=== PATIENT | female | born 1990 | race Two or more races ===

== ENCOUNTER 2018-03-18 16:01 | Emergency (ER) | payer MEDICAID, MEDICARE ==
[~2018-03-18] VITALS: Ht 157.5 cm; Wt 47.6 kg
[~2018-03-18 16:01] MED LIST: CLON1TAB72 PO; GABA800T87 PO; ZONI100C43 OR
[2018-03-18 17:06] LABS: Basophils # (auto) 0.1 uL; Basophils % (auto) 0.8 % (0.0-2.0); Eosinophils # (auto) 0.5 uL; Eosinophils % (auto) 5.9 % (0.0-7.0); Hemoglobin 14.2 g/dL (12.2-16.2); Lymphocytes # (auto) 2.5 uL; Lymphocytes % (auto) 29.1 % (10.0-50.0); Mean Corpuscular Hemoglobin 31.1 pg (28.0-32.0); Mean Corpuscular Hgb Conc. 33.9 g/dL (32.0-36.0); Mean Corpuscular Volume 91.7 fL (80.0-100.0); Monocytes # (auto) 0.4 uL; Monocytes % (auto) 4.8 % (0.0-12.0); Neutrophils # (auto) 5.2 uL; Neutrophils % (auto) 59.4 % (37.0-80.0); Nucleated Red Blood Cells % 0.1 %; Platelet Count (auto) 193 10^3/uL (140-450); Red Blood Cells 4.58 10^6/uL (4.0-5.20); Red Cell Distribution Width 13.8 % (11.8-14.3); White Blood Cell 8.7 10^3/uL (4.4-10.8)
[2018-03-18 17:20] LABS: Albumin 3.7 g/dL (3.4-5.0); Calcium 8.5 mg/dL (8.5-10.1); Potassium 3.4 mmol/L (3.5-5.1)
[2018-03-18 17:23] LABS: BUN/Creatinine Ratio 13.7; Bilirubin, Total 0.2 mg/dL (0.2-1.0); Total Protein 7.2 g/dL (6.4-8.2)
[2018-03-18] MEDS ORDERED: clonazePAM 0.5 MG TAB PO ONE (18:45)
[2018-03-18 19:34] VITALS: BP 131/96
== END 2018-03-18 20:33 | disposition home or self-care (01) ==
LOC: EDBD 16:01 → ER 16:04
DX: G40.89 Other seizures (principal); Q90.9 Down syndrome, unspecified; G80.9 Cerebral palsy, unspecified; Z91.14 Patient's other noncompliance with medication regimen
CPT/HCPCS: 36415; 80053; 85025

== ENCOUNTER 2018-03-19 08:02 | Emergency (ER) | payer MEDICAID, MEDICARE ==
[~2018-03-19] VITALS: Ht 154.9 cm; Wt 54.4 kg
[2018-03-19] MEDS ORDERED: LORazepam 2MG/ML-1ML VIAL ONE (08:13)
[2018-03-19] MEDS ORDERED: SODIUM CHLORIDE 0.9% 1,000 ML IV ONE (08:19)
[2018-03-19] MEDS ORDERED: SODIUM CHLORIDE 0.9% 500 ML IVB ONE (08:19)
[2018-03-19] MEDS ORDERED: LORazepam 2MG/ML-1ML VIAL IV ONE ×2 (08:30)
[2018-03-19] MEDS ORDERED: LEVETIRACETAM INJ 1,000 MG in D5W 5% 100 ML IV ONE (08:30)
[2018-03-19 09:12] LABS: Basophils # (auto) 0 uL; Basophils % (auto) 0.5 % (0.0-2.0); Eosinophils # (auto) 0.5 uL; Eosinophils % (auto) 5.2 % (0.0-7.0); Hematocrit 43.7 % (36.0-46.0); Lymphocytes # (auto) 2.6 uL; Lymphocytes % (auto) 25.6 % (10.0-50.0); Mean Corpuscular Hemoglobin 31.2 pg (28.0-32.0); Mean Corpuscular Hgb Conc. 34.3 g/dL (32.0-36.0); Mean Corpuscular Volume 90.8 fL (80.0-100.0); Monocytes # (auto) 0.5 uL; Monocytes % (auto) 4.8 % (0.0-12.0); Neutrophils # (auto) 6.4 uL; Neutrophils % (auto) 63.9 % (37.0-80.0); Nucleated Red Blood Cells % 0.1 %; Platelet Count (auto) 168 10^3/uL (140-450); Red Blood Cells 4.81 10^6/uL (4.0-5.20); Red Cell Distribution Width 13.7 % (11.8-14.3); White Blood Cell 10.1 10^3/uL (4.4-10.8)
[2018-03-19 09:20] LABS: Albumin 3.7 g/dL (3.4-5.0); Potassium 3.5 mmol/L (3.5-5.1)
[2018-03-19 09:23] LABS: BUN/Creatinine Ratio 9.2; Bilirubin, Total 0.3 mg/dL (0.2-1.0); Total Protein 7.3 g/dL (6.4-8.2)
[2018-03-19 12:40] LABS: Urine Amorphous Crystal FEW /hpf (None Seen); Urine Bacteria FEW /hpf (None Seen); Urine Blood Negative /uL (Negative); Urine Mucus FEW (None Seen); Urine Specific Gravity 1.007 (1.001-1.035); Urine WBC 1 /hpf (0 - 5)
[2018-03-19 12:45] LABS: Alcohol, Urine < 3.0 mg/dL (0-5); Amphetamine Screen, Urine NEGATIVE (NEGATIVE); Benzodiazephine Screen, Urine POSITIVE (NEGATIVE); Cannabinoid Screen, Urine NEGATIVE (NEGATIVE); Cocaine Screen, Urine NEGATIVE (NEGATIVE); Opiate Scree,Urine NEGATIVE (NEGATIVE); Phencyclidine Screen, Urine NEGATIVE (NEGATIVE)
[2018-03-19 12:52] LABS: Barbiturate Scree,Urine NEGATIVE (NEGATIVE)
[2018-03-19 13:37] VITALS: BP 102/57
== END 2018-03-19 13:52 | disposition home or self-care (01) ==
LOC: EDBD 08:02 → ER 08:02
DX: G40.909 Epilepsy, unspecified, not intractable, without status epilepticus (principal); Q90.9 Down syndrome, unspecified
CPT/HCPCS: 36415; 51702; 70450; 71045; 80053; 80307; 81001; 81025; 83735; 84443; 84702; 85025; 93005; 94761; 96365; 96366; 96375; 99284; J1953; J2060; J7030; J7060

== ENCOUNTER 2018-03-19 20:06 | Emergency (ER) | payer MEDICARE, MEDICAID ==
[~2018-03-19] VITALS: Ht 152.4 cm; Wt 59.0 kg
[2018-03-19 20:17] VITALS: BP 100/71
== END 2018-03-19 21:08 | disposition left against medical advice (07) ==
LOC: EDBD 20:06 → ER 20:12
DX: R25.1 Tremor, unspecified (principal); Z76.0 Encounter for issue of repeat prescription; Z53.21 Procedure and treatment not carried out due to patient leaving prior to being seen by health care provider

== ENCOUNTER 2018-04-28 08:03 | Emergency (ER) | payer MEDICARE, MEDICAID ==
[~2018-04-28] VITALS: Ht 142.2 cm; Wt 54.4 kg
[2018-04-28 11:04] LABS: Basophils # (auto) 0.1 uL; Basophils % (auto) 0.7 % (0.0-2.0); Eosinophils # (auto) 0.4 uL; Eosinophils % (auto) 4.1 % (0.0-7.0); Hematocrit 43.5 % (36.0-46.0); Hemoglobin 14.7 g/dL (12.2-16.2); Lymphocytes # (auto) 1.9 uL; Mean Corpuscular Hemoglobin 30.7 pg (28.0-32.0); Mean Corpuscular Hgb Conc. 33.7 g/dL (32.0-36.0); Mean Corpuscular Volume 91.2 fL (80.0-100.0); Monocytes # (auto) 0.7 uL; Neutrophils % (auto) 72.2 % (37.0-80.0); Nucleated Red Blood Cells % 0.1 %; Platelet Count (auto) 187 10^3/uL (140-450); Red Blood Cells 4.77 10^6/uL (4.0-5.20); Red Cell Distribution Width 13.8 % (11.8-14.3); White Blood Cell 11.1 10^3/uL (4.4-10.8)
[2018-04-28 11:15] VITALS: BP 97/60
[2018-04-28 11:54] LABS: Alanine Aminotransferase 17 U/L (13-56); Calcium 8.9 mg/dL (8.5-10.1); Chloride 112 mmol/L (98-107); Potassium 3.7 mmol/L (3.5-5.1); Sodium 140 mmol/L (136-145)
[2018-04-28 12:02] LABS: Albumin 3.4 g/dL (3.4-5.0); Anion Gap 7 (5-15); Blood Urea Nitrogen 5 mg/dL (7-18); Carbon Dioxide 21 mmol/L (21-32); Glucose 85 mg/dL (74-106)
[2018-04-28 12:09] LABS: Urine Bacteria FEW /hpf (None Seen); Urine Blood Negative /uL (Negative); Urine Specific Gravity 1.005 (1.001-1.035); Urine WBC 16 /hpf (0 - 5)
[2018-04-28 12:30] LABS: Alkaline Phosphatase 91 U/L (45-117); BUN/Creatinine Ratio 7.4; Bilirubin, Total 0.5 mg/dL (0.2-1.0); GFR African American 135 mL/min; GFR Non-African American 111 mL/min
[2018-04-28 12:32] LABS: Aspartate Aminotransferase 25 U/L (15-37); Total Protein 7.4 g/dL (6.4-8.2)
== END 2018-04-28 12:55 | disposition home or self-care (01) ==
LOC: EDBD 08:03 → ER 08:03
DX: R56.9 Unspecified convulsions (principal)
CPT/HCPCS: 36415; 80053; 81001; 82962; 85025; 94761